=== PATIENT | female | born 1965 | race Caucasian/White ===

== ENCOUNTER 2016-09-07 18:13 | Inpatient (IN) | payer BC ==
[~2016-09-07] VITALS: Ht 165.1 cm; Wt 74.4 kg
[2016-09-07 18:33] VITALS: BP 117/65
[2016-09-07 19:07] LABS: MEAN CORPUSCULAR HEMOGLOBIN 32.5 PG (27.0-31.0); MEAN CORPUSCULAR VOLUME 90 FL (80-99); MEAN PLATELET VOLUME 7.3 FL (6.5-10.1); PLATELET COUNT 172 K/UL (150-450); RED BLOOD COUNT 3.95 M/UL (4.20-5.40)
[2016-09-07 19:13] LABS: BASOPHILS % (AUTO) 0.2 % (0.0-2.0); LYMPHOCYTES % (AUTO) 4.1 % (20.0-45.0); MONOCYTES % (AUTO) 3.5 % (1.0-10.0); NEUTROPHILS % (AUTO) 92.2 % (45.0-75.0)
[2016-09-07 19:25] LABS: TROPONIN I < 0.30 ng/mL (<=0.30)
[2016-09-07 19:28] LABS: ALANINE AMINOTRANSFERASE 8 U/L (3-33); ALBUMIN/GLOBULIN RATIO 1.5 (1.0-2.7); ANION GAP 19 (5-15); ASPARTATE AMINO TRANSFERASE 12 U/L (5-40); CALCIUM 8.3 mg/dL (8.6-10.2); CARBON DIOXIDE 18 mEQ/L (20-30); CHLORIDE 101 mEQ/L (98-107); CREATININE 0.6 mg/dL (0.5-0.9); GLOMERULAR FILTRATION RATE > 60 mL/min (>60); HEMOLYSIS 11; POTASSIUM 3.7 mEQ/L (3.4-4.9); SODIUM 138 mEQ/L (135-145); TOTAL PROTEIN 5.9 g/dL (6.6-8.7)
[2016-09-07 19:38] LABS: CKMB < 1.5 ng/mL (< 3.8)
[2016-09-07] MEDS ORDERED: Morphine Sulfate 4mg/ml Inj IVP ONE (20:30)
[2016-09-07] MEDS ORDERED: cefTRIAXone 1 GM in NS 55 ML IV ONE (21:15)
[2016-09-07] MEDS ORDERED: Azithromycin 500 MG in NS 275 ML IV ONE (21:15)
[2016-09-07] MEDS ORDERED: Promethazine/Codeine 5ml UD ORAL PRN (21:30)
[2016-09-07] MEDS ORDERED: Miralax 17gm pkt ORAL PRN (21:30)
[2016-09-07] MEDS ORDERED: Mylanta II UD 30ml ORAL PRN (21:30)
[2016-09-07] MEDS ORDERED: DuoNeb 0.5-3(2.5)mg/3ml neb HHN PRN (21:30)
[2016-09-07] MEDS ORDERED: Nitroglycerin Subl 0.4mg tab (Bottle Of 25) SL PRN (21:30)
[2016-09-07] MEDS ORDERED: Azithromycin Inj IV ONE (21:49)
--- NOTE | 2016-09-07 21:50 | Emergency Room Report ---
History of Present Illness General Chief Complaint: General Complaint Source: Patient, EMS Present Illness HPI 51-year-old female presents to ED for evaluation. Per EMS patient was short of breath today. Patient states that she had tummy tuck surgery at outpatient surgery center today. Patient states she felt short of breath and was brought to the hospital for evaluation. Upon arrival patient states she is able to take short breaths. Denies any chest pain. Denies any fevers or chills. Denies cough. Denies any leg swelling. No other aggravating or relieving factors. Denies any other associated symptoms Allergies: Coded Allergies: No Known Allergies (Unverified , 09/07/16) Patient History Past Medical History: none Past Surgical History: none Pertinent Family History: none Social History: Denies: alcohol use, drug use, smoking Last Menstrual Period: na Now: No Immunizations: UTD Reviewed Nursing Documentation: PMH: Agreed, PSxH: Agreed Nursing Documentation-PMH Past Medical History: No Stated History Review of Systems All Other Systems: negative except mentioned in HPI Physical Exam Vital Signs Date Time Temp Pulse Resp B/P Pulse Ox O2 Delivery O2 Flow Rate FiO2 09/07/16 18:09 97.9 94 18 115/74 98 Room Air 09/07/16 18:33 4.0 Sp02 EP Interpretation: reviewed, normal General Appearance: no apparent distress, alert, GCS 15, non-toxic Head: normocephalic, atraumatic Eyes: bilateral eye PERRL, bilateral eye normal inspection ENT: hearing grossly normal, normal pharynx, no angioedema, normal voice Neck: full range of motion, supple/symm/no masses Respiratory: chest non-tender, normal breath sounds, crackles, speaking full sentences Cardiovascular #1: regular rate, rhythm, no edema Cardiovascular #2: 2+ carotid (R), 2+ carotid (L), 2+ radial (R), 2+ radial (L) , 2+ dorsalis pedis (R), 2+ dorsalis pedis (L) Gastrointestinal: normal bowel sounds, non tender, soft, non-distended, no guarding, no rebound Rectal: deferred Genitourinary: normal inspection, no CVA tenderness Musculoskeletal: back normal, gait/station normal, normal range of motion, non- tender Neurologic: alert, oriented x3, responsive, motor strength/tone normal, sensory intact, speech normal Psychiatric: judgement/insight normal, memory normal, mood/affect normal, no suicidal/homicidal ideation Reflexes: 3+ bicep (R), 3+ bicep (L), 3+ tricep (R), 3+ tricep (L), 3+ knee (R) , 3+ knee (L) Skin: normal color, no rash, warm/dry, well hydrated Lymphatic: no adenopathy Medical Decision Making Diagnostic Impression: Primary Impression: Aspiration pneumonia Qualified Codes: J69.0 - Pneumonitis due to inhalation of food and vomit ER Course Hospital Course 51-year-old F presenting to ED with SOB after surgery today. Differential diagnoses include: Pneumonia, CHF exacerbation, pneumothorax, fluid overload, PE Clinical course Patient placed on stretcher. On estimator printing. After initial history and physical, I ordered oxygen. I ordered labs, IV fluids, EKG, chest x-ray, blood cultures, UA. Patient placed on nasal cannula with O2 saturation improving Labs -no leukocytosis, hemoglobin/hematocrit stable, electrolytes ok, BNP ok, trop negative, ddimer elevated CXR -bilateral effusions ? infiltrates CTA chest - no PE, bilateral infiltrates EKG - NSR, no acute changes interpreted by me abx given. discussed case with Surgeon Dr Redman Case discussed with Dr. Hernandez and he agreed to the patient to his service for further care and support I feel this is a highly complex case requiring extensive working including EKG/ Rhythm strip, Xray/CT/US, Blood/urine lab work, repeat exams while in ED, and administration of strong opiates/narcotics for pain control, admission to hospital or close patient follow up. Diagnosis - aspiration pneumonia Patient admitted to telemetry in serious condition Labs Test 09/07/16 18:25 09/07/16 21:13 White Blood Count 16.0 K/UL (4.8-10.8) Red Blood Count 3.95 M/UL (4.20-5.40) Hemoglobin 12.8 G/DL (12.0-16.0) Hematocrit 35.6 % (37.0-47.0) Mean Corpuscular Volume 90 FL (80-99) Mean Corpuscular Hemoglobin 32.5 PG (27.0-31.0) Mean Corpuscular Hemoglobin Concent 36.0 G/DL (32.0-36.0) Red Cell Distribution Width 11.0 % (11.6-14.8) Platelet Count 172 K/UL (150-450) Mean Platelet Volume 7.3 FL (6.5-10.1) Neutrophils (%) (Auto) 92.2 % (45.0-75.0) Lymphocytes (%) (Auto) 4.1 % (20.0-45.0) Monocytes (%) (Auto) 3.5 % (1.0-10.0) Eosinophils (%) (Auto) 0.0 % (0.0-3.0) Basophils (%) (Auto) 0.2 % (0.0-2.0) D-Dimer 785 ng/mL (<500) Sodium Level 138 mEQ/L (135-145) Potassium Level 3.7 mEQ/L (3.4-4.9) Chloride Level 101 mEQ/L (98-107) Carbon Dioxide Level 18 mEQ/L (20-30) Anion Gap 19 (5-15) Blood Urea Nitrogen 10 mg/dL (7-23) Creatinine 0.6 mg/dL (0.5-0.9) Estimat Glomerular Filtration Rate > 60 mL/min (>60) Glucose Level 169 mg/dL (74-106) Calcium Level 8.3 mg/dL (8.6-10.2) Total Bilirubin 0.5 mg/dL (0.0-1.2) Aspartate Amino Transf (AST/SGOT) 12 U/L (5-40) Alanine Aminotransferase (ALT/SGPT) 8 U/L (3-33) Alkaline Phosphatase 44 U/L (35-104) Total Creatine Kinase 71 U/L (26-140) Creatine Kinase MB < 1.5 ng/mL (< 3.8) Creatine Kinase MB Relative Index Troponin I < 0.30 ng/mL (<=0.30) Pro-B-Type Natriuretic Peptide 226 pg/mL (0-125) Total Protein 5.9 g/dL (6.6-8.7) Albumin 3.6 g/dL (3.5-5.2) Globulin 2.3 g/dL Albumin/Globulin Ratio 1.5 (1.0-2.7) EKG Diagnostic Results Rate: normal Rhythm: NSR ST Segments: no acute changes ASA given to the pt in ED: No Rhythm Strip Diag. Results EP Interpretation: yes Rhythm: NSR, no PVC's, no ectopy Chest X-Ray Diagnostic Results EP Interpretation: Yes Findings: no pneumothorax, no acute cardiopulmonary disease, other - bilateral effusion, ? atelectasis Number of Views: 1 CT/MRI/US Diagnostic Results CT/MRI/US Diagnostic Results : Imaging Test Ordered: CTA chest Impression no PE. extensive lower lobe infiltrates likely pneumonia Last Vital Signs Date Time Temp Pulse Resp B/P Pulse Ox O2 Delivery O2 Flow Rate FiO2 09/07/16 20:53 97.9 09/07/16 18:33 88 29 117/65 97 Nasal Cannula 4.0 Status: improved Disposition: ADMITTED INPATIENT Condition: Serious Referrals: NON PHYSICIAN (PCP) FAYE MCGHEE M.D. Sep 07, 2016 21:50
[2016-09-07 21:53] LABS: REFLEX LACTIC ACID YES OR NO YES
[2016-09-07 22:11] VITALS: BP 107/66
[2016-09-07] MEDS ORDERED: AMITREX PO (22:13)
[2016-09-07] MEDS ORDERED: AMITRIPTYLINE H25 MG ORAL (22:13)
[2016-09-08] VITALS (7 sets, daily range): BP systolic 102–135; BP diastolic 61–77
[2016-09-08] MEDS ORDERED: IMITREX50 MG ORAL (05:36)
[2016-09-08] MEDS: Morphine Sulfate 4mg/ml Inj IVP PRN ×4 (07:53→21:59)
[2016-09-08 08:04] LABS: BASOPHILS % (AUTO) 0.3 % (0.0-2.0); LYMPHOCYTES % (AUTO) 11.2 % (20.0-45.0); MEAN CORPUSCULAR HEMOGLOBIN 30.8 PG (27.0-31.0); MEAN CORPUSCULAR HGB CONC 34.5 G/DL (32.0-36.0); MEAN CORPUSCULAR VOLUME 89 FL (80-99); MEAN PLATELET VOLUME 7.5 FL (6.5-10.1); MONOCYTES % (AUTO) 4.7 % (1.0-10.0); NEUTROPHILS % (AUTO) 83.8 % (45.0-75.0); PLATELET COUNT 200 K/UL (150-450); RED BLOOD COUNT 3.92 M/UL (4.20-5.40); RED CELL DISTRIBUTION WIDTH 11.2 % (11.6-14.8); WHITE BLOOD COUNT 12.4 K/UL (4.8-10.8)
[2016-09-08 08:16] LABS: ANION GAP 8 (5-15); CALCIUM 8.1 mg/dL (8.6-10.2); CARBON DIOXIDE 25 mEQ/L (20-30); CHLORIDE 103 mEQ/L (98-107); CREATININE 0.6 mg/dL (0.5-0.9); GLOMERULAR FILTRATION RATE > 60 mL/min (>60); HEMOLYSIS 3; PHOSPHORUS 3.2 mg/dL (2.5-4.8); POTASSIUM 3.5 mEQ/L (3.4-4.9); SODIUM 136 mEQ/L (135-145)
--- NOTE | 2016-09-08 08:45 | Diagnostic Imaging Report ---
Indication: Chest pain Technique: Continuous helical transaxial imaging of the chest was obtained from the thoracic inlet to the upper abdomen during rapid intravenous contrast administration. Arterial phase of enhancement obtained. Coronal 2-D reformats were also obtained and maximum intensity projection images in multiple planes. Study obtained in a Siemens sensation [address] Total Dose length Product (DLP): [address] Dose Index Volume (CTDIvol): 12.6x2, 30 mGy Comparison: None Findings: The pulmonary artery is well opacified and shows no filling defects. Extensive bilateral lower lobe consolidation demonstrated consistent with pneumonia. There is no adenopathy, pleural or pericardial effusions are identified. The aortic dissection or aneurysm identified within the chest. Visualized part of the upper abdomen demonstrates slightly distended gallbladder. Slightly increased density in the dependent portion of the gallbladder is noted and may be due to sludge or small stones.. Bilateral breast implants are noted. Impression: No evidence of pulmonary embolus, aortic dissection or aneurysm. Extensive lower lobe consolidation. Pneumonia suspected. Possible cysts gallstones or sludge Bilateral breast implants The CT scanner at [facility] is accredited by the [employer] and the scans are performed using dose optimization techniques as appropriate to a performed exam including Automatic Exposure control.
[2016-09-08] MEDS: Cefepime HCl 1 GM in D5W 55 ML IV SCH ×2 (08:47→19:55)
[2016-09-08] MEDS: Heparin 5000 units/ml inj SUBQ SCH ×2 (08:52→20:03)
--- NOTE | 2016-09-08 09:31 | Diagnostic Imaging Report ---
Indication: Dyspnea Comparison: None A single view chest radiograph was obtained. Findings: There are patchy infiltrates at the lung bases suspected. Heart size is normal. Ulnar vascularity is probably within normal limits. The bones are unremarkable. Impression: Basilar infiltrates. Pneumonia suspected.
[2016-09-08] MEDS ORDERED: NS 275ml ONE (10:30)
--- NOTE | 2016-09-08 13:10 | History and Physical ---
History of Present Illness General Date patient seen: Sep 08, 2016 Reason for Hospitalization: General Complaint Present Illness HPI 51-year-old female presents to ED for evaluation of shortness of breath today. She had tummy tuck surgery at outpatient surgery yesterday. Patient states she felt short of breath and was brought to the hospital for evaluation. She was diagnosed to have aspiration pneumonia with bilateral infiltrate on CXR. She was admitted for further evaluation. Allergies: Coded Allergies: No Known Allergies (Unverified , 09/07/16) Medication History Scheduled Amitriptyline Hcl* (Amitriptyline Hcl*), 50 MG ORAL BEDTIME, (Reported) Scheduled PRN Sumatriptan Succinate* (Imitrex*), 100 MG ORAL DAILY PRN MIGRAINE PRN for prn, ( Reported) Discontinued Medications [Amitrex], 100 MG PO PRN PRN for For Headache, (Reported) Discontinued Reason: Therapy completed Patient History Healthcare decision maker pt A&Ox4 Resuscitation status Advanced Directive on File Review of Systems Respiratory: Reports: cough, shortness of breath, sputum All Other Systems: negative except mentioned in HPI Physical Exam General Appearance: WD/WN Lines, tubes and drains: peripheral HEENT: normocephalic Neck: non-tender, normal alignment Respiratory/Chest: chest wall non-tender, lungs clear Breasts: no masses Cardiovascular/Chest: normal peripheral pulses Abdomen: normal bowel sounds, non tender Genitourinary/Rectal: normal genital exam, normal rectal exam Extremities: normal range of motion, non-pitting Neurologic: performance improvement consultant II-XII grossly normal Last 24 Hour Vital Signs Date Time Temp Pulse Resp B/P Pulse Ox O2 Delivery O2 Flow Rate FiO2 09/08/16 12:01 97.2 80 20 112/68 99 Room Air 09/08/16 12:00 77 09/08/16 08:30 97.7 09/08/16 08:00 84 09/08/16 07:58 85 18 Nasal Cannula 3.0 32 09/08/16 07:56 97.7 86 20 111/71 99 Nasal Cannula 3.0 09/08/16 04:58 97.9 09/08/16 04:00 97.8 82 20 121/71 97 09/08/16 04:00 87 09/08/16 00:00 88 09/08/16 00:00 97.5 96 21 115/67 95 09/07/16 22:46 97.9 92 17 107/66 97 Nasal Cannula 4.0 09/07/16 22:11 92 17 107/66 97 Nasal Cannula 4.0 09/07/16 20:53 97.9 09/07/16 18:33 88 29 117/65 97 Nasal Cannula 4.0 09/07/16 18:09 97.9 94 18 115/74 98 Room Air Intake and Output 09/07/16 09/08/16 19:00 07:00 Intake Total 755 ml Output Total 30 ml Balance 725 ml Intake Oral 200 ml IV Total 555 ml Output Urine Total 30 ml Laboratory Tests Test 09/07/16 18:25 09/07/16 20:05 09/07/16 21:13 09/08/16 07:20 White Blood Count 16.0 K/UL (4.8-10.8) H 12.4 K/UL (4.8-10.8) H Red Blood Count 3.95 M/UL (4.20-5.40) L 3.92 M/UL (4.20-5.40) L Hemoglobin 12.8 G/DL (12.0-16.0) 12.1 G/DL (12.0-16.0) Hematocrit 35.6 % (37.0-47.0) L 35.1 % (37.0-47.0) L Mean Corpuscular Volume 90 FL (80-99) 89 FL (80-99) Mean Corpuscular Hemoglobin 32.5 PG (27.0-31.0) H 30.8 PG (27.0-31.0) Mean Corpuscular Hemoglobin Concent 36.0 G/DL (32.0-36.0) 34.5 G/DL (32.0-36.0) Red Cell Distribution Width 11.0 % (11.6-14.8) L 11.2 % (11.6-14.8) L Platelet Count 172 K/UL (150-450) 200 K/UL (150-450) Mean Platelet Volume 7.3 FL (6.5-10.1) 7.5 FL (6.5-10.1) Neutrophils (%) (Auto) 92.2 % (45.0-75.0) H 83.8 % (45.0-75.0) H Lymphocytes (%) (Auto) 4.1 % (20.0-45.0) L 11.2 % (20.0-45.0) L Monocytes (%) (Auto) 3.5 % (1.0-10.0) 4.7 % (1.0-10.0) Eosinophils (%) (Auto) 0.0 % (0.0-3.0) 0.0 % (0.0-3.0) Basophils (%) (Auto) 0.2 % (0.0-2.0) 0.3 % (0.0-2.0) D-Dimer 785 ng/mL (<500) H Sodium Level 138 mEQ/L (135-145) 136 mEQ/L (135-145) Potassium Level 3.7 mEQ/L (3.4-4.9) 3.5 mEQ/L (3.4-4.9) Chloride Level 101 mEQ/L (98-107) 103 mEQ/L (98-107) Carbon Dioxide Level 18 mEQ/L (20-30) L 25 mEQ/L (20-30) Anion Gap 19 (5-15) H 8 (5-15) Blood Urea Nitrogen 10 mg/dL (7-23) 9 mg/dL (7-23) Creatinine 0.6 mg/dL (0.5-0.9) 0.6 mg/dL (0.5-0.9) Estimat Glomerular Filtration Rate > 60 mL/min (>60) > 60 mL/min (>60) Glucose Level 169 mg/dL (74-106) H 133 mg/dL (74-106) H Calcium Level 8.3 mg/dL (8.6-10.2) L 8.1 mg/dL (8.6-10.2) L Total Bilirubin 0.5 mg/dL (0.0-1.2) Aspartate Amino Transf (AST/SGOT) 12 U/L (5-40) Alanine Aminotransferase (ALT/SGPT) 8 U/L (3-33) Alkaline Phosphatase 44 U/L (35-104) Total Creatine Kinase 71 U/L (26-140) Creatine Kinase MB < 1.5 ng/mL (< 3.8) Creatine Kinase MB Relative Index Troponin I < 0.30 ng/mL (<=0.30) Pro-B-Type Natriuretic Peptide 226 pg/mL (0-125) H Total Protein 5.9 g/dL (6.6-8.7) L Albumin 3.6 g/dL (3.5-5.2) 3.4 g/dL (3.5-5.2) L Globulin 2.3 g/dL Albumin/Globulin Ratio 1.5 (1.0-2.7) Lactic Acid Level 1.80 mmol/L (0.66-2.22) 2.00 mmol/L (0.66-2.22) Phosphorus Level 3.2 mg/dL (2.5-4.8) Height (Feet): 5 Height (Inches): 5.00 Weight (Pounds): 164 Medications Current Medications Medications (Trade) Dose Ordered Sig/Christophe Route PRN Reason Start Time Stop Time Status Last Admin Dose Admin Acetaminophen (Tylenol) 650 mg Q4H PRN ORAL fever 09/07/16 21:30 10/07/16 21:29 09/08/16 03:58 Al Hydroxide/Mg Hydroxide (Mylanta II) 30 ml Q6H PRN ORAL dyspepsia 09/07/16 21:30 10/07/16 21:29 Albuterol/ Ipratropium 3 ml 3 ml Q4H PRN HHN Shortness of Breath 09/07/16 21:30 09/12/16 21:29 Amitriptyline HCl (Elavil) 50 mg BEDTIME ORAL 09/08/16 21:00 10/08/16 20:59 Cefepime HCl/ Dextrose (Maxipime/D5W) 55 ml @ 110 mls/hr EVERY 12 HOURS IV 09/08/16 09:00 09/15/16 08:59 09/08/16 08:47 Heparin Sodium (Porcine) (Heparin 5000 units/ml) 5,000 units EVERY 12 HOURS SUBQ 09/08/16 09:00 10/08/16 08:59 09/08/16 08:52 Morphine Sulfate (Morphine Sulfate) 4 mg Q4H PRN IVP For Pain 09/08/16 07:30 09/15/16 07:29 09/08/16 12:49 Nitroglycerin (Ntg) 0.4 mg Q5M PRN SL Prn Chest Pain 09/07/16 21:30 7/6/17 21:29 Ondansetron HCl (Zofran) 4 mg Q6H PRN IVP Nausea & Vomiting 09/07/16 21:30 10/07/16 21:29 09/08/16 03:58 Polyethylene Glycol (Miralax) 17 gm DAILYPRN PRN ORAL Constipation 09/07/16 21:30 10/07/16 21:29 Promethazine HCl/ Codeine (Phenergan with Codeine) 5 ml Q4H PRN ORAL For Cough 09/07/16 21:30 10/07/16 21:29 Sumatriptan Succinate (Imitrex) 100 mg DAILY PRN ORAL For migraine Pain 09/08/16 07:30 10/08/16 07:29 Temazepam (Restoril) 15 mg HSPRN PRN ORAL Insomnia 09/07/16 21:30 09/14/16 21:29 09/08/16 02:18 Assessment/Plan Problem List: (1) Aspiration pneumonia ICD Codes: J69.0 - Pneumonitis due to inhalation of food and vomit SNOMED: 749014460 Qualifiers: Qualified Codes: J69.0 - Pneumonitis due to inhalation of food and vomit (2) Status post abdominoplasty ICD Codes: Z98.890 - Other specified postprocedural states SNOMED: 741111749, 236292908 Assessment/Plan respiratory treatment IV antibiotics incentive spirometry dvt prophylaxis wound care pain management BATOOL HAILE Sep 08, 2016 13:10
[2016-09-08] MEDS: SUMAtriptan 100mg tab ORAL PRN (16:21)
--- NOTE | 2016-09-08 17:51 | Cardiology Report ---
APPROVED REPORT EKG Measurement Heart [id number] Normal sinus rhythm Normal ECG
--- NOTE | 2016-09-08 20:56 | Infectious Diseases Prog Note ---
Subjective Allergies: Coded Allergies: No Known Allergies (Unverified , 09/07/16) Subjective ID note # [id number] Objective Vital Signs Last 24 Hour Vital Signs Date Time Temp Pulse Resp B/P Pulse Ox O2 Delivery O2 Flow Rate FiO2 09/08/16 20:00 82 20 Room Air 21 09/08/16 20:00 98.2 86 20 132/77 93 Room Air 3.0 21 09/08/16 17:30 98.2 09/08/16 15:41 98.2 82 19 135/74 95 Room Air 09/08/16 12:01 97.2 80 20 112/68 99 Room Air 09/08/16 12:00 77 09/08/16 08:00 84 09/08/16 07:58 85 18 Nasal Cannula 3.0 32 09/08/16 07:56 97.7 86 20 111/71 99 Nasal Cannula 3.0 09/08/16 04:58 97.9 09/08/16 04:00 97.8 82 20 121/71 97 09/08/16 04:00 87 09/08/16 00:00 88 09/08/16 00:00 97.5 96 21 115/67 95 09/07/16 22:46 97.9 92 17 107/66 97 Nasal Cannula 4.0 09/07/16 22:11 92 17 107/66 97 Nasal Cannula 4.0 Height (Feet): 5 Height (Inches): 5.00 Weight (Pounds): 164 Laboratory Tests Test 09/07/16 21:13 09/08/16 07:20 Lactic Acid Level 2.00 mmol/L (0.66-2.22) White Blood Count 12.4 K/UL (4.8-10.8) H Red Blood Count 3.92 M/UL (4.20-5.40) L Hemoglobin 12.1 G/DL (12.0-16.0) Hematocrit 35.1 % (37.0-47.0) L Mean Corpuscular Volume 89 FL (80-99) Mean Corpuscular Hemoglobin 30.8 PG (27.0-31.0) Mean Corpuscular Hemoglobin Concent 34.5 G/DL (32.0-36.0) Red Cell Distribution Width 11.2 % (11.6-14.8) L Platelet Count 200 K/UL (150-450) Mean Platelet Volume 7.5 FL (6.5-10.1) Neutrophils (%) (Auto) 83.8 % (45.0-75.0) H Lymphocytes (%) (Auto) 11.2 % (20.0-45.0) L Monocytes (%) (Auto) 4.7 % (1.0-10.0) Eosinophils (%) (Auto) 0.0 % (0.0-3.0) Basophils (%) (Auto) 0.3 % (0.0-2.0) Sodium Level 136 mEQ/L (135-145) Potassium Level 3.5 mEQ/L (3.4-4.9) Chloride Level 103 mEQ/L (98-107) Carbon Dioxide Level 25 mEQ/L (20-30) Anion Gap 8 (5-15) Blood Urea Nitrogen 9 mg/dL (7-23) Creatinine 0.6 mg/dL (0.5-0.9) Estimat Glomerular Filtration Rate > 60 mL/min (>60) Glucose Level 133 mg/dL (74-106) H Calcium Level 8.1 mg/dL (8.6-10.2) L Phosphorus Level 3.2 mg/dL (2.5-4.8) Albumin 3.4 g/dL (3.5-5.2) L Current Medications Medications (Trade) Dose Ordered Sig/Christophe Route PRN Reason Start Time Stop Time Status Last Admin Dose Admin Acetaminophen (Tylenol) 650 mg Q4H PRN ORAL fever 09/07/16 21:30 10/07/16 21:29 09/08/16 03:58 Al Hydroxide/Mg Hydroxide (Mylanta II) 30 ml Q6H PRN ORAL dyspepsia 09/07/16 21:30 10/07/16 21:29 Albuterol/ Ipratropium 3 ml 3 ml Q4H PRN HHN Shortness of Breath 09/07/16 21:30 09/12/16 21:29 Amitriptyline HCl (Elavil) 50 mg BEDTIME ORAL 09/08/16 21:00 10/08/16 20:59 09/08/16 20:04 Cefepime HCl/ Dextrose (Maxipime/D5W) 55 ml @ 110 mls/hr EVERY 12 HOURS IV 09/08/16 09:00 09/15/16 08:59 09/08/16 19:55 Heparin Sodium (Porcine) (Heparin 5000 units/ml) 5,000 units EVERY 12 HOURS SUBQ 09/08/16 09:00 10/08/16 08:59 09/08/16 08:52 Morphine Sulfate (Morphine Sulfate) 4 mg Q4H PRN IVP For Pain 09/08/16 07:30 09/15/16 07:29 09/08/16 17:04 Nitroglycerin (Ntg) 0.4 mg Q5M PRN SL Prn Chest Pain 09/07/16 21:30 10/07/16 21:29 Ondansetron HCl (Zofran) 4 mg Q6H PRN IVP Nausea & Vomiting 09/07/16 21:30 10/07/16 21:29 09/08/16 03:58 Polyethylene Glycol (Miralax) 17 gm DAILYPRN PRN ORAL Constipation 09/07/16 21:30 10/07/16 21:29 Promethazine HCl/ Codeine (Phenergan with Codeine) 5 ml Q4H PRN ORAL For Cough 09/07/16 21:30 10/07/16 21:29 Sumatriptan Succinate (Imitrex) 100 mg DAILY PRN ORAL For migraine Pain 09/08/16 07:30 10/08/16 07:29 09/08/16 16:21 Temazepam (Restoril) 15 mg HSPRN PRN ORAL Insomnia 09/07/16 21:30 09/14/16 21:29 09/08/16 02:18 PHUC ODELL M.D. Sep 08, 2016 20:56
[2016-09-09] MEDS: metroNIDAZOLE 500mg 100 ML IVPB SCH ×4 (01:02→21:50)
--- NOTE | 2016-09-09 02:16 | Consultation ---
DATE OF CONSULTATION: INFECTIOUS DISEASES CONSULTATION: REASON FOR CONSULTATION: Aspiration pneumonia. REQUESTING PHYSICIAN: Ced Hernandez M.D. HISTORY OF PRESENT ILLNESS: The patient is a 51-year-old female with multiple medical problems, who has been admitted to this medical center due to shortness of breath after tummy tuck surgery. The patient did not have cultures or any respiratory symptoms prior to that. However, after aspiration, the patient developed bilateral pneumonia, shortness of breath, and hypoxemia. PAST MEDICAL HISTORY: 1. Migraines. 2. History of right hip fracture. MEDICATIONS: Cefepime. ALLERGIES: No known drug allergies. SOCIAL HISTORY: No history of alcohol or drug abuse. FAMILY HISTORY: Noncontributing . PHYSICAL EXAMINATION: VITAL SIGNS: Temperature 97.2 degrees, pulse 86, respiratory rate 18, and blood pressure 132/77. HEENT: Mild conjunctivae. NECK: No lymphadenopathy. CHEST: No wheezes . HEART: S1 and S2. ABDOMEN: Soft. EXTREMITIES: No cyanosis. NEUROLOGIC: Alert and awake. LABORATORY AND DIAGNOSTIC DATA: WBC , hemoglobin 12, and platelets 200,000. BUN 9 and creatinine 0.6. ALT, AST, and alkaline phosphatase was unremarkable. CT of the chest, no evidence of pulmonary emboli, extensive lower lobe consolidation, bilateral breast implant. ASSESSMENT: The patient is a 51-year-old female with multiple medical problems was admitted to this medical center with, 1. Aspiration pneumonia. 2. Leukocytosis. 3. Hypoxemia post extubation. 4. Tummy tuck surgery. PLAN: 1. We will continue the patient on cefepime without Flagyl. We will continue antibiotic treatment for total seven days. Upon improvement, we will change Levaquin and Flagyl to complete the course. 2. Monitor CBC. 3. Monitor BNP. 4. We will send sputum and blood culture. 5. Based on the patient's clinical course and labs, we will do further recommendations. Thank you, Dr. Hernandez, for allowing me to participate in the care of this patient. I will follow the patient with you during this hospitalization. Adin Lemus M.D. DR: Rosangela JOB#: [id number] CC:
[2016-09-09] MEDS: Morphine Sulfate 4mg/ml Inj IVP PRN ×4 (03:15→21:51)
[2016-09-09 04:51] VITALS: BP 129/62
[2016-09-09 08:10] VITALS: BP 131/80
[2016-09-09] MEDS: Heparin 5000 units/ml inj SUBQ SCH ×2 (08:40→21:00)
[2016-09-09] MEDS: Cefepime HCl 1 GM in D5W 55 ML IV SCH ×2 (09:25→20:24)
--- NOTE | 2016-09-09 10:40 | Infectious Diseases Prog Note ---
Assessment/Plan Assessment/Plan A: The patient is a 51-year-old female with Aspiration pneumonia. CT : no evidence of pulmonary emboli extensive lower lobe consolidation Leukocytosis improving Hypoxemia post extubation Tummy tuck surgery Migraines History of right hip fracture PLAN: will continue on cefepime d# 2 / 7 and Flagyl d# 1 / 7 Upon improvement, we will change Levaquin and Flagyl to complete the course ( Rx in chart ) Monitor CBC Monitor BNP Monitor sputum and blood culture Subjective Constitutional: Denies: anorexia, chills, drenching sweats, fatigue, fever, no symptoms, other Allergies: Coded Allergies: No Known Allergies (Unverified , 09/07/16) Subjective feeling better Objective Vital Signs Last 24 Hour Vital Signs Date Time Temp Pulse Resp B/P Pulse Ox O2 Delivery O2 Flow Rate FiO2 09/09/16 10:21 90 Room Air 09/09/16 09:34 92 Nasal Cannula 2.0 28 09/09/16 09:34 88 20 Nasal Cannula 2.0 28 09/09/16 09:34 Nasal Cannula 2.0 28 09/09/16 08:10 97.9 90 19 131/80 91 Nasal Cannula 09/09/16 04:51 98.2 65 20 129/62 97 Room Air 09/08/16 23:43 97.9 86 20 120/73 91 Room Air 09/08/16 20:00 82 20 Room Air 21 09/08/16 20:00 98.2 86 20 132/77 93 Room Air 3.0 21 09/08/16 17:30 98.2 09/08/16 15:41 98.2 82 19 135/74 95 Room Air 09/08/16 12:01 97.2 80 20 112/68 99 Room Air 09/08/16 12:00 77 Height (Feet): 5 Height (Inches): 5.00 Weight (Pounds): 164 HEENT: anicteric Respiratory/Chest: normal breath sounds Cardiovascular: regularly irregular Abdomen: no organomegaly Microbiology Date/Time Source Procedure Growth Status 09/07/16 21:13 Blood Blood Culture - Preliminary NO GROWTH AFTER 24 HOURS Resulted 09/07/16 21:03 Blood Blood Culture - Preliminary NO GROWTH AFTER 24 HOURS Resulted Current Medications Medications (Trade) Dose Ordered Sig/Christophe Route PRN Reason Start Time Stop Time Status Last Admin Dose Admin Acetaminophen (Tylenol) 650 mg Q4H PRN ORAL fever 09/07/16 21:30 10/07/16 21:29 09/08/16 03:58 Al Hydroxide/Mg Hydroxide (Mylanta II) 30 ml Q6H PRN ORAL dyspepsia 09/07/16 21:30 10/07/16 21:29 Albuterol/ Ipratropium 3 ml 3 ml Q4H PRN HHN Shortness of Breath 09/07/16 21:30 09/12/16 21:29 Amitriptyline HCl (Elavil) 50 mg BEDTIME ORAL 09/08/16 21:00 10/08/16 20:59 09/08/16 20:04 Cefepime HCl/ Dextrose (Maxipime/D5W) 55 ml @ 110 mls/hr EVERY 12 HOURS IV 09/08/16 09:00 09/15/16 08:59 09/09/16 09:25 Heparin Sodium (Porcine) (Heparin 5000 units/ml) 5,000 units EVERY 12 HOURS SUBQ 09/08/16 09:00 10/08/16 08:59 09/09/16 08:40 Metronidazole (Flagyl) 100 ml @ 100 mls/hr Q8HR IVPB 09/09/16 00:00 09/16/16 00:00 09/09/16 05:38 Morphine Sulfate 4 mg 4 mg Q4H PRN IVP For Pain 09/08/16 07:30 09/15/16 07:29 09/09/16 09:26 Nitroglycerin (Ntg) 0.4 mg Q5M PRN SL Prn Chest Pain 09/07/16 21:30 10/07/16 21:29 Ondansetron HCl (Zofran) 4 mg Q6H PRN IVP Nausea & Vomiting 09/07/16 21:30 10/07/16 21:29 09/08/16 03:58 Polyethylene Glycol (Miralax) 17 gm DAILYPRN PRN ORAL Constipation 09/07/16 21:30 10/07/16 21:29 Promethazine HCl/ Codeine (Phenergan with Codeine) 5 ml Q4H PRN ORAL For Cough 09/07/16 21:30 10/07/16 21:29 Sumatriptan Succinate (Imitrex) 100 mg DAILY PRN ORAL For migraine Pain 09/08/16 07:30 10/08/16 07:29 09/08/16 16:21 Temazepam (Restoril) 15 mg HSPRN PRN ORAL Insomnia 09/07/16 21:30 09/14/16 21:29 09/08/16 02:18 PHUC ODELL M.D. Sep 09, 2016 10:40
[2016-09-09 11:24] VITALS: BP 126/69
[2016-09-09] MEDS: SUMAtriptan 100mg tab ORAL PRN (11:52)
[2016-09-09] MEDS ORDERED: NS 275ml ONE (12:41)
[2016-09-09] MEDS ORDERED: Tubing IV Secondary IV ONE (12:41)
--- NOTE | 2016-09-09 14:53 | Pulmonology Progress Note ---
Assessment/Plan Problems: (1) Aspiration pneumonia (2) Status post abdominoplasty Assessment/Plan improving respiratory treatment abx dc home with oral antibiotics Subjective ROS Limited/Unobtainable: Yes Interval Events: no new complains Allergies: Coded Allergies: No Known Allergies (Unverified , 09/07/16) Objective Last 24 Hour Vital Signs Date Time Temp Pulse Resp B/P Pulse Ox O2 Delivery O2 Flow Rate FiO2 09/09/16 11:24 98.2 89 18 126/69 90 Room Air 09/09/16 10:21 90 Room Air 09/09/16 09:56 97.9 09/09/16 09:34 92 Nasal Cannula 2.0 28 09/09/16 09:34 88 20 Nasal Cannula 2.0 28 09/09/16 09:34 Nasal Cannula 2.0 28 09/09/16 08:10 97.9 90 19 131/80 91 Nasal Cannula 09/09/16 04:51 98.2 65 20 129/62 97 Room Air 09/08/16 23:43 97.9 86 20 120/73 91 Room Air 09/08/16 20:00 82 20 Room Air 21 09/08/16 20:00 98.2 86 20 132/77 93 Room Air 3.0 21 09/08/16 15:41 98.2 82 19 135/74 95 Room Air Intake and Output 09/08/16 09/09/16 19:00 07:00 Intake Total 115 ml Output Total 900 ml 300 ml Balance -785 ml -300 ml Intake Oral 60 ml IV Total 55 ml Output Urine Total 900 ml 300 ml General Appearance: WD/WN HEENT: normocephalic, atraumatic Respiratory/Chest: chest wall non-tender, lungs clear Breasts: no masses Cardiovascular: normal peripheral pulses Abdomen: normal bowel sounds, soft, non tender Genitourinary: normal external genitalia Extremities: no cyanosis Neurologic/Psychiatric: sack cleaner II-XII grossly normal, no motor/sensory deficits Lymphatic: no neck adenopathy Musculoskeletal: normal muscle bulk Microbiology Date/Time Source Procedure Growth Status 09/07/16 21:13 Blood Blood Culture - Preliminary NO GROWTH AFTER 24 HOURS Resulted 09/07/16 21:03 Blood Blood Culture - Preliminary NO GROWTH AFTER 24 HOURS Resulted Current Medications Medications (Trade) Dose Ordered Sig/Christophe Route PRN Reason Start Time Stop Time Status Last Admin Dose Admin Acetaminophen (Tylenol) 650 mg Q4H PRN ORAL fever 09/07/16 21:30 10/07/16 21:29 09/08/16 03:58 Al Hydroxide/Mg Hydroxide (Mylanta II) 30 ml Q6H PRN ORAL dyspepsia 09/07/16 21:30 10/07/16 21:29 Albuterol/ Ipratropium 3 ml 3 ml Q4H PRN HHN Shortness of Breath 09/07/16 21:30 09/12/16 21:29 Amitriptyline HCl (Elavil) 50 mg BEDTIME ORAL 09/08/16 21:00 10/08/16 20:59 09/08/16 20:04 Cefepime HCl/ Dextrose (Maxipime/D5W) 55 ml @ 110 mls/hr EVERY 12 HOURS IV 09/08/16 09:00 09/15/16 08:59 09/09/16 09:25 Heparin Sodium (Porcine) (Heparin 5000 units/ml) 5,000 units EVERY 12 HOURS SUBQ 09/08/16 09:00 10/08/16 08:59 09/09/16 08:40 Metronidazole (Flagyl) 100 ml @ 100 mls/hr Q8HR IVPB 09/09/16 00:00 09/16/16 00:00 09/09/16 13:40 Morphine Sulfate 4 mg 4 mg Q4H PRN IVP For Pain 09/08/16 07:30 09/15/16 07:29 09/09/16 09:26 Nitroglycerin (Ntg) 0.4 mg Q5M PRN SL Prn Chest Pain 09/07/16 21:30 10/07/16 21:29 Ondansetron HCl (Zofran) 4 mg Q6H PRN IVP Nausea & Vomiting 09/07/16 21:30 10/07/16 21:29 09/08/16 03:58 Polyethylene Glycol (Miralax) 17 gm DAILYPRN PRN ORAL Constipation 09/07/16 21:30 10/07/16 21:29 Promethazine HCl/ Codeine (Phenergan with Codeine) 5 ml Q4H PRN ORAL For Cough 09/07/16 21:30 10/07/16 21:29 Sumatriptan Succinate (Imitrex) 100 mg DAILY PRN ORAL For migraine Pain 09/08/16 07:30 10/08/16 07:29 09/09/16 11:52 Temazepam (Restoril) 15 mg HSPRN PRN ORAL Insomnia 09/07/16 21:30 09/14/16 21:29 09/08/16 02:18 BATOOL HAILE Sep 09, 2016 14:53
[2016-09-09 15:38] VITALS: BP 146/80
[2016-09-09 20:26] VITALS: BP 124/82
[2016-09-10 00:58] VITALS: BP 132/75
[2016-09-10 04:00] VITALS: BP 132/76
[2016-09-10] MEDS: metroNIDAZOLE 500mg 100 ML IVPB SCH (05:04)
[2016-09-10 07:11] LABS: ALANINE AMINOTRANSFERASE 5 U/L (3-33); ALBUMIN/GLOBULIN RATIO 1.2 (1.0-2.7); ANION GAP 13 (5-15); ASPARTATE AMINO TRANSFERASE 10 U/L (5-40); CALCIUM 8.6 mg/dL (8.6-10.2); CARBON DIOXIDE 25 mEQ/L (20-30); CHLORIDE 101 mEQ/L (98-107); CREATININE 0.5 mg/dL (0.5-0.9); GLOMERULAR FILTRATION RATE > 60 mL/min (>60); HEMOLYSIS 4; POTASSIUM 3.3 mEQ/L (3.4-4.9); SODIUM 139 mEQ/L (135-145); TOTAL PROTEIN 5.8 g/dL (6.6-8.7)
[2016-09-10 07:21] LABS: BASOPHILS % (AUTO) 0.8 % (0.0-2.0); EOSINOPHILS % (AUTO) 0.5 % (0.0-3.0); LYMPHOCYTES % (AUTO) 14.8 % (20.0-45.0); MEAN CORPUSCULAR HEMOGLOBIN 30.8 PG (27.0-31.0); MEAN CORPUSCULAR HGB CONC 34.7 G/DL (32.0-36.0); MEAN CORPUSCULAR VOLUME 89 FL (80-99); MEAN PLATELET VOLUME 8.1 FL (6.5-10.1); MONOCYTES % (AUTO) 6.8 % (1.0-10.0); NEUTROPHILS % (AUTO) 77.1 % (45.0-75.0); PLATELET COUNT 197 K/UL (150-450); RED BLOOD COUNT 4.04 M/UL (4.20-5.40); RED CELL DISTRIBUTION WIDTH 10.7 % (11.6-14.8); WHITE BLOOD COUNT 6.9 K/UL (4.8-10.8)
[2016-09-10 08:13] VITALS: BP 133/79
[2016-09-10] MEDS: Heparin 5000 units/ml inj SUBQ SCH (08:58)
[2016-09-10] MEDS: Cefepime HCl 1 GM in D5W 55 ML IV SCH (08:58)
--- NOTE | 2016-09-10 09:20 | Diagnostic Imaging Report ---
Indication: DYSPNEA Technique: One view of the chest Comparison: 09/07/2016 Findings: Bilateral breast implants obscure the lung bases to some extent. Right basilar infiltrate appears similar. Left basilar infiltrate appears denser. There may be some pleural fluid on the left as well. Impression: Increasing basilar infiltrate on the left. Stable right basilar infiltrate, over 3 days
[2016-09-10] MEDS ORDERED: Tubing IV Secondary IV ONE ×2 (10:04→11:24)
[2016-09-10] MEDS ORDERED: LEVAQUIN500 MG ORAL (10:40)
[2016-09-10] MEDS ORDERED: METRONIDAZOLE500 MG ORAL (10:40)
--- NOTE | 2016-09-10 18:09 | Pulmonology Progress Note ---
Assessment/Plan Problems: (1) Aspiration pneumonia (2) Status post abdominoplasty Assessment/Plan improving respiratory treatment abx dc home with oral antibiotics Subjective Allergies: Coded Allergies: No Known Allergies (Unverified , 09/07/16) Objective Last 24 Hour Vital Signs Date Time Temp Pulse Resp B/P Pulse Ox O2 Delivery O2 Flow Rate FiO2 09/10/16 08:13 97.5 96 16 133/79 95 Room Air 09/10/16 07:25 Nasal Cannula 2.0 28 09/10/16 07:25 80 18 Nasal Cannula 2.0 28 09/10/16 07:25 94 Nasal Cannula 2.0 28 09/10/16 04:00 97.7 85 20 132/76 94 Room Air 09/10/16 00:58 98.2 87 20 132/75 92 Room Air 09/09/16 22:21 98.2 09/09/16 21:43 Nasal Cannula 2.0 28 09/09/16 21:43 95 Nasal Cannula 2.0 28 09/09/16 21:43 88 20 Nasal Cannula 2.0 28 09/09/16 20:26 98.2 99 20 124/82 90 Room Air Intake and Output 09/09/16 09/10/16 19:00 07:00 Intake Total 360 ml Output Total 97 ml 1925 ml Balance -97 ml -1565 ml Intake Oral 360 ml Output Urine Total 1800 ml Drainage Total 97 ml 125 ml Microbiology Date/Time Source Procedure Growth Status 09/09/16 01:45 Blood Blood Culture - Preliminary NO GROWTH AFTER 24 HOURS Resulted 09/09/16 01:40 Blood Blood Culture - Preliminary NO GROWTH AFTER 24 HOURS Resulted 09/07/16 21:13 Blood Blood Culture - Preliminary NO GROWTH AFTER 48 HOURS Resulted 09/07/16 21:03 Blood Blood Culture - Preliminary NO GROWTH AFTER 48 HOURS Resulted Laboratory Tests 09/10/16 05:10: White Blood Count 6.9, Red Blood Count 4.04L, Hemoglobin 12.4, Hematocrit 35.9L , Mean Corpuscular Volume 89, Mean Corpuscular Hemoglobin 30.8, Mean Corpuscular Hemoglobin Concent 34.7, Red Cell Distribution Width 10.7L, Platelet Count 197, Mean Platelet Volume 8.1, Neutrophils (%) (Auto) 77.1H, Lymphocytes (%) (Auto) 14.8L, Monocytes (%) (Auto) 6.8, Eosinophils (%) (Auto) 0.5, Basophils (%) (Auto) 0.8, Sodium Level 139, Potassium Level 3.3L, Chloride Level 101, Carbon Dioxide Level 25, Anion Gap 13, Blood Urea Nitrogen 11, Creatinine 0.5, Estimat Glomerular Filtration Rate > 60, Glucose Level 111H, Calcium Level 8.6, Total Bilirubin 0.5, Aspartate Amino Transf (AST/SGOT) 10, Alanine Aminotransferase (ALT/SGPT) 5, Alkaline Phosphatase 69, Pro-B-Type Natriuretic Peptide 261H, Total Protein 5.8L, Albumin 3.2L, Globulin 2.6, Albumin/Globulin Ratio 1.2 BATOOL HAILE Sep 10, 2016 18:09
--- NOTE | 2016-09-13 08:50 | Discharge Summary ---
Discharge Summary Hospital Course Date of Admission Sep 07, 2016 at 21:00 Date of Discharge Sep 10, 2016 at 11:25 Admitting Diagnosis SOB HPI Renea Oliver is a 51 year old female who was admitted on Sep 07, 2016 at 21:00 for Shortness Of Breath Hospital Course dc summary #[id number] Discharge Medications Continued Medications: Amitriptyline Hcl* (Amitriptyline Hcl*) 25 Mg Tablet 50 MG ORAL BEDTIME, TAB Levofloxacin* (Levaquin*) 500 Mg Tablet 500 MG ORAL DAILY for 6 Days, TAB Metronidazole* (Flagyl*) 500 Mg Tablet 500 MG ORAL THREE TIMES A DAY for 6 Days, TAB 0 Refills Sumatriptan Succinate* (Imitrex*) 50 Mg Tablet 100 MG ORAL DAILY PRN MIGRAINE PRN for prn, TAB Discharge Condition Upon Discharge: stable Discharge Disposition Patient was discharged to Home (01) Discharge Diagnoses: Discharge Instructions Discharge Instructions Special Instructions I have been assigned to complete a D/C Summary on this account. I was not involved in the patient management Jessica Williamson NP (Vanchtein) Sep 13, 2016 08:50
--- NOTE | 2016-09-14 01:15 | Discharge Summary 2 SIG ---
DATE OF ADMISSION: 09/07/2016 DATE OF DISCHARGE: 09/10/2016 REASON FOR ADMISSION AND HISTORY OF PRESENT ILLNESS: This is a 51-year-old female, who presented to the emergency room with a complaint of shortness of breath for one day. The patient apparently had earlier tummy tuck surgery at [facility] and felt short of breath. The patient was sent to the hospital for evaluation. The patient denied chest pain. She denied fever, chills, cough, or leg swelling. No prior past medical history. She denied smoking or any illicit drug use. Workup in the emergency room revealed that the patient was afebrile. Blood pressure was stable. Heart rate was stable. The patient was placed on four liters of oxygen via nasal cannula. Pulse oximetry was 98%. Chest x-ray revealed bilateral infiltrates. No leukocytosis. Stable hemoglobin and hematocrit. Stable electrolytes. EKG revealed normal sinus rhythm. No acute ischemic changes. Noted elevated D-dimer of 785. Subsequently CTA of the chest was done, which revealed no pulmonary emboli. No aortic dissection or aneurysm, however CTA demonstrated extensive lower lobe consolidation with suspected pneumonia. ADMITTING DIAGNOSIS: Aspiration pneumonia, status post abdominoplasty. HOSPITAL STAY: The patient was admitted. The patient was started on supplemental oxygen and pulmonary toilet provided as needed. Incentive spirometry was placed on the bedside and the patient was taught and encouraged to use. The patient was started on empiric antibiotic. ID consult was requested. Wound care provided. Pain management addressed. DVT prophylaxis provided. Blood culture initially on admission was negative. Repeated blood culture on 09/09/2016 was negative as well. Leukocytosis initially was 16, resolved on the day of discharge and the patient was stable for discharge home with oral antibiotic as per ID recommendation. DISCHARGE DIAGNOSIS: Aspiration pneumonia, status post abdominoplasty. DISCHARGE MEDICATIONS: See medication reconciliation list. DISCHARGE INSTRUCTIONS: The patient was discharged home and encouraged to complete antibiotic course. FOLLOWUP: Follow up with the primary medical doctor. Follow up with the surgeon. Ced Hernandez M.D. I have been assigned to dictate discharge summary on this account and I was not involved in the patient's management. Jessica Williamson N.P. (vanchtein) DR: Kathleen JOB#: [id number] CC:
== END 2016-09-10 11:25 | disposition home or self-care (01) | DRG 179 ==
LOC: EDBD 18:13 → EMR 18:45 → 2E 21:00 → EDBEDREQ 21:47 → 4E 09-08 21:19
DX: J69.0 Pneumonitis due to inhalation of food and vomit (principal); R09.02 Hypoxemia; Z98.890 Other specified postprocedural states
CPT/HCPCS: 36415; 71010; 71275; 80053; 80069; 82550; 82553; 83605; 83880; 84484; 85025; 85379; 87040; 93005; 94664; 94760; J2405; J8499